=== PATIENT | female | born 1970 | race Caucasian/White ===

== ENCOUNTER 2025-03-04 11:37 | Emergency (ER) | payer OTHER ==
[~2025-03-04] VITALS: Ht 157.5 cm; Wt 66.0 kg
[2025-03-04 11:52] VITALS: O2SAT 98
[2025-03-04] MEDS: KETOROLAC 30MG/ML VIAL IM ONE (13:48)
[2025-03-04] MEDS: TETANUS, DIPHTHERIA, PERTUSSIS VAC/PF 0.5ML (>10YR OLD) IM ONE (13:48)
[2025-03-04] MEDS ORDERED: BO1 TP (16:19)
[2025-03-04] MEDS ORDERED: CEPH500T MT (16:19)
[2025-03-04] MEDS ORDERED: IBUP-2030 MT (16:20)
[2025-03-04] MEDS: BACITRACIN ZINC OINT UDPKT TOP ONE (16:23)
[2025-03-04] MEDS: LIDOCAINE HCL 1% 20ML VIAL INL ONE (16:23)
[2025-03-04 16:35] VITALS: BP 135/73; PULSE 71; RESP 18; TEMP 37.1; O2SAT 98
== END 2025-03-04 16:35 | disposition home or self-care (01) ==
LOC: ER 11:37
DX: S62.630B Displaced fracture of distal phalanx of right index finger, initial encounter for open fracture (principal); I10 Essential (primary) hypertension
CPT/HCPCS: 73140; 90715; 12002; 90471; 96372; 99284; J1885; J2003; Z7610

== ENCOUNTER 2025-03-12 08:39 | Emergency (ER) | payer OTHER ==
[~2025-03-12] VITALS: Ht 165.1 cm; Wt 64.0 kg
[~2025-03-12 08:39] MED LIST: BO1 TP; CEPH500T MT; IBUP-2030 MT
[2025-03-12 08:49] VITALS: O2SAT 96
[2025-03-12] MEDS ORDERED: LISI20TA31 PO (08:54)
[2025-03-12] MEDS: BACITRACIN ZINC OINT UDPKT TOP ONE (11:35)
[2025-03-12 11:59] VITALS: BP 130/65; PULSE 66; RESP 15; TEMP 36.7; O2SAT 98
== END 2025-03-12 12:00 | disposition home or self-care (01) ==
LOC: ER 08:39
DX: S61.210D Laceration without foreign body of right index finger without damage to nail, subsequent encounter (principal); I10 Essential (primary) hypertension; Z98.890 Other specified postprocedural states; X58.XXXD Exposure to other specified factors, subsequent encounter
CPT/HCPCS: 99282; Z7610